=== PATIENT | male | born 1975 | race Caucasian/White ===

== ENCOUNTER 2022-05-25 15:14 | Outpatient (CLI) | payer OTHER, SELFPAY ==
--- NOTE | ~2022-05-25 | XR_ITS ---
Cervical Spine: AP, lateral, open-mouth views Clinical History: Pain Findings: The normal lordotic curve is maintained. The vertebral bodies and posterior elements appea r intact. There is mild degenerative disc narrowing at C4-C5. Pre-vertebral soft tissues are unremark able. Impression: Mild degenerative disc narrowing at C4-C5. Reviewed, dictated and finalized at [facility]. ACY MANAGER Impression: Mild degenerative disc narrowing at C4-C5.
== END 2022-05-25 15:15 | disposition home or self-care (01) ==
LOC: CHSIMG 15:19
PROVIDERS: PCP Nurse Practitioner; Visit Provider Nurse Practitioner
DX: M54.2 Cervicalgia (principal); M48.02 Spinal stenosis, cervical region
CPT/HCPCS: 72040

== ENCOUNTER 2024-08-19 10:00 | Outpatient (CLI) | payer OTHER, SELFPAY ==
--- NOTE | ~2024-08-19 | US_ITS ---
US thyroid INDICATION: Follow-up left thyroid nodule TECHNIQUE: Real-time sonographic images of the thyroid gland were obtained. COMPARISON: No prior studies for comparison. FINDINGS: The right thyroid lobe measures 4.3 x 2.1 x 1.8 cm. The left thyroid lobe measures 5.2 x 3 x 1.7 cm. In the right thyroid lobe there are multiple small ill-defined hypoechoic subcentimeter ma sses, largest measuring 8 mm with heterogeneous internal echotexture, solid, hypoechoic, wider than t all, smoothly marginated with macrocalcifications, TR 4. In the left lobe there is a benign 1.[address] In the isthmus there is an irregular shaped solid hypoechoic mass which is taller than wide, slig htly irregular margins and coarse internal calcifications, TR 5. This mass measures 11 x 7 mm. IMPRESSION: 1. Multinodular goiter. Mass located in the isthmus measures 11 mm, TR 5. Ultrasound-guided fine-needle aspiration biopsy recommended. Reviewed, dictated and finalized at location A.
--- OUTSIDE RECORDS SUMMARY | 2024-08-19 10:50 | XMS_ITS | Clinical Summary ---
Author Organization [facility] Address [address] [place] [address] Phone Care Team Providers Care Flute Grinder Name Role Phone Mary Desir APRN Primary Care Provider [phone] Allergies No known active allergies Medications lisinopril (PRINIVIL, ZESTRIL) 10 MG Tablet Take 10 mg by mouth daily. 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 Pulse 81 05/27/2021 10:55 AM SCRUM COACH Temperature 36.3 C (97.3 F) 05/27/2021 10:55 AM SCRUM COACH Respiratory Rate 16 05/27/2021 10:55 AM SCRUM COACH Oxygen Saturation 96% 05/27/2021 10:55 AM SCRUM COACH Inhaled Oxygen Concentration - - Weight - - Height - - Body Mass Index - - Plan of Treatment Health Maintenance Due Date Last Done Comments Hepatitis C Virus (HCV) Screening 1977 TdaP Immunization 1977 Hepatitis B Immunization (1 of 3 - 19+ 3-dose series) 1996 Colonoscopy 2022 Colorectal Cancer Screening 2022 Influenza Immunization (#1) 2023 SARS-COV-2 Immunization ( season) 2023 10/09/2020, 09/18/2020 Respiratory Syncytial Virus (RSV) Immunization (Adult) (1 - 1-dose 75+ series) 2052 Meningococcal Immunization (ACWY) Aged Out No longer eligible b ased on patient's age to complete this topic Pneumococcal Immunization Combined Aged Out No longer eligible b ased on patient's age to complete this topic Rotavirus Immunization Aged Out No lo nger eligible based on patient's age to complete this topic Insurance MEDICAID [place] Care Teams Flute Grinder Relationship Specialty Start Date End Date Mary Desir APRN [address] [facility] [address] [place] [address] PCP - General Certified Nurse Practitioner 05/27/21
== END 2024-08-19 10:01 | disposition home or self-care (01) ==
LOC: CHSIMG 10:05
PROVIDERS: PCP Nurse Practitioner Family; Visit Provider Nurse Practitioner Family
DX: E04.2 Nontoxic multinodular goiter (principal)
CPT/HCPCS: 76536